=== PATIENT | female | born 1940 | race Caucasian/White ===

== ENCOUNTER 2024-11-25 10:38 | Outpatient (CLI) | payer MEDICARE, BC, SELFPAY ==
[2024-11-25 11:12] VITALS: BP 147/66; PULSE 88; RESP 18; TEMP 36.7; O2SAT 99
[2024-11-25 11:41] VITALS: PULSE 112; O2SAT 94
[2024-11-25 11:50] VITALS: PULSE 94; O2SAT 99
--- NOTE | 2024-11-25 11:55 | PDOC.PAIN_ITS ---
Date of service: 11/25/24 Time of Service: 11:55 US Guided Injections Type of Ultrasound Guided Injection: Neck Left Trapezius muscle Trigger Point Injection Pre-Procedural Evaluation Tenderness to palpation at the left trapezius muscle Referral Patient has been [facility] for Left Trapezius muscle Neck Trigger Point Injection for a chief complaint of Left upper shoulder/lower neck pain Pre-Procedural Pain Score Pre-procedural pain score: 7/10 Reason for Exam Pain and muscle spasm to the left Trapezius muscle area Patient Interview Patient was interviewed and medical record reviewed: Yes There were no contraindications to performing an US guided procedure. Risks,expected side effects, potential benefits were reviewed. The patient consent form was signed and witnessed. Standard time out procedure was performed. Patient Safety No skin abnormalities at the site of the proposed injection Procedure Description No sedation given for procedure Patient was placed in the prone position and the following Pulse Ox applied. Pre-Procedure ultrasound scanning performed using a Linear 9 MHz probe Site Preparation Chloroprep Local Anesthesia Skin and subcutaneous tissues anesthetized with: 3 mL of Lidocaine 2%. A 21 G 3.5 Pajunk ultrasound needle was placed under live US guidance using an in-plane approach to the target area. After visualization of the needle tip at the target area Depo-Medrol 40mg per cc and Lidocaine 2% were used. Total of Injectate/Medication Note: 1 cc of Depomedrol and 4 cc of 2% Lidocaine Negative aspiration for blood. [place] were removed without difficulty. Ultrasound images were captured and stored. Patient Mental Status Patient was alert and awake during procedure Vital Signs Vital signs were stable throughout the procedure and recorded by nursing. Follow Up/Discharge Follow up plans and appointments were discussed with patient. Post procedure instruction was given as documented in nursing documentation. Discharge criteria met and patient discharged from [facility]: Yes Post Procedure Pain Post Procedure Pain: 0/10 Patient tolerated procedure well Procedure Outcome: Successful Non US Guided Injections Procedure Description Patient was placed in the prone position Post Procedure Pain Post Procedure Pain: 0/10 Coding Conscious Sedation used for procedure: No CPT Codes: TPI Single/Multi 1 or 2 Muscles - 96549 ([id number] ~G) Additional Codes: Visualization of the needle tip - Ultrasound images captured/stored: Yes ([id number]) Date of Service (69911) Date of service: 11/25/24
[2024-11-25] MEDS: methylPREDNISolone ACETATE 40 MG/ML VIAL IJ (12:00)
[2024-11-25] MEDS: Lidocaine 2% Pres-Free 5 ML VIAL IJ (12:00)
[2024-11-25] MEDS: Nerve Block Tray 1 EACH MC (12:01)
== END 2024-11-25 10:39 | disposition home or self-care (01) ==
PROVIDERS: PCP Family Medicine; Visit Provider Preventive Medicine Occupational Medicine
DX: M25.512 Pain in left shoulder (principal); M54.2 Cervicalgia; M79.12 Myalgia of auxiliary muscles, head and neck
CPT/HCPCS: 20552; 76942; J1010

== ENCOUNTER → 2025-04-05 11:01 | Outpatient (BNVA) | payer MEDICARE, BC, SELFPAY | PROVIDERS: PCP Family Medicine; Referring Provider Family Medicine; Visit Provider Nurse Practitioner Gerontology | DX: N20.0 Calculus of kidney (principal); R30.0 Dysuria; R39.9 Unspecified symptoms and signs involving the genitourinary system; J45.909 Unspecified asthma, uncomplicated; I10 Essential (primary) hypertension | CPT/HCPCS: 99205; 81002 ==

== ENCOUNTER → 2025-07-18 10:18 | Outpatient (BNVA) | payer MEDICARE, BC, SELFPAY | PROVIDERS: PCP Family Medicine; Referring Provider Family Medicine; Visit Provider Nurse Practitioner Gerontology | DX: R35.0 Frequency of micturition (principal); Z87.442 Personal history of urinary calculi; R39.9 Unspecified symptoms and signs involving the genitourinary system | CPT/HCPCS: 99214 ==